=== PATIENT | female | born 1965 | race Caucasian/White ===

== ENCOUNTER 2017-05-31 12:40 | Observation (INO) | payer SELFPAY ==
[2017-05-31 13:28] LABS: BASOPHILS # (AUTO) 0.1 X10^3/uL (0.0-0.1); BASOPHILS % (AUTO) 0.6 % (0.2-1.0); EOSINOPHILS # (AUTO) 0.3 x10^3/uL (0.0-0.2); EOSINOPHILS % (AUTO) 4.1 % (0.9-2.9); HEMATOCRIT 39.8 % (36.0-47.0); HEMOGLOBIN 13.8 g/dL (12.0-16.0); LYMPHOCYTES % (AUTO) 24.3 % (21.0-51.0); MEAN CORPUSCULAR HEMOGLOBIN 33.1 pg (27.0-34.0); MEAN CORPUSCULAR HGB CONC 34.8 g/dL (33.0-35.0); MEAN CORPUSCULAR VOLUME 95.2 fL (80.0-100.0); MEAN PLATELET VOLUME 8.5 fL (7.4-11.0); MONOCYTES # (AUTO) 0.3 x10^3/uL (0.3-0.8); MONOCYTES % (AUTO) 4.2 % (0.0-13.0); NEUTROPHILS # (AUTO) 5.4 x10^3/uL (2.2-4.8); NEUTROPHILS % (AUTO) 66.8 % (42.0-75.0); PLATELET COUNT 263 X10^3/uL (150.0-450.0); RED BLOOD COUNT 4.18 X10^6/uL (3.5-5.4); RED CELL DISTRIBUTION WIDTH 12.6 % (11.6-16.5)
[2017-05-31] MEDS: PEPCID 20 MG IV PREMIX* 20 MG/50 ML BAG IV SCH ×2 (13:32→20:40)
[2017-05-31 13:41] VITALS: BMI 23.0
[2017-05-31 13:47] LABS: ALANINE AMINOTRANSFERASE 18 Units/L (12-78); ALBUMIN 3.5 g/dL (3.4-5.0); ALKALINE PHOSPHATASE 50 Units/L (46-116); ASPARTATE AMINO TRANSFERASE 22 Units/L (15-37); BLOOD UREA NITROGEN 11 mg/dL (7-18); CARBON DIOXIDE 25.8 mmol/L (21-32); CHLORIDE 105 mmol/L (98-107); CREATININE 1.09 mg/dL (0.55-1.02); GLUCOSE 96 mg/dL (65-99); MAGNESIUM 2.2 mg/dL (1.7-2.9); SODIUM 140 mmol/L (136-145); TOTAL PROTEIN 7.2 g/dL (6.4-8.2); eGFR BLACK RACES > 60 (>60); eGFR NON BLACK RACES 56 (>60)
--- NOTE | 2017-05-31 13:59 | RAD ---
HISTORY: COPD. Cough. Study: Chest one view Comparison: None. Findings: The trachea is midline. The cardiac silhouette is unremarkable. The lungs are hyperinflated. The l ungs are clear without focal infiltrate or effusion. The bony thorax is unremarkable. IMPRESSION: 1. No acute cardiopulmonary disease. Reported By:
[2017-05-31] MEDS ORDERED: NS 1000 ML 1,000 ML IV SCH (14:00)
[2017-05-31] MEDS ORDERED: NICODERM PATCH 21 MG/24 HR TD ONE (14:03)
[2017-05-31] MEDS: NICODERM PATCH 21 MG/24 HR TD SCH (14:06)
[2017-05-31] MEDS ORDERED: MORPHINE SULFATE INJ 2 MG ONE (15:57)
[2017-05-31] MEDS: MORPHINE SULFATE INJ 2 MG IVP PRN ×2 (16:06→22:14)
[2017-05-31] MEDS ORDERED: NS 100 ML IV 100 ML IV ONE (16:10)
[2017-05-31 16:33] LABS: BILIRUBIN,URINE NEGATIVE (NEGATIVE); BLOOD/HEMOGLOBIN,URINE 1+ (NEGATIVE); GLUCOSE, URINE NEGATIVE (NEGATIVE); KETONES,URINE NEGATIVE (NEGATIVE); LEUKOCYTE ESTERASE ,URINE NEGATIVE (NEGATIVE); NITRITES,URINE NEGATIVE (NEGATIVE); PROTEIN,URINE NEGATIVE (NEGATIVE); UROBILINOGEN,URINE NORMAL (NORMAL)
[2017-05-31 16:44] LABS: APPEARANCE,URINE HAZY (CLEAR); BACTERIA,URINE 1+ /HPF (NEGATIVE); COLOR,URINE YELLOW (YELLOW); RBC,URINE 0-2 /HPF (NEGATIVE); SQUAMOUS EPITHELIAL CELL,UR RARE /HPF (NEGATIVE)
[2017-05-31 17:04] LABS: CRYPTOSPORIDIUM PARVUM ANTIGEN NEGATIVE (NEGATIVE); GIARDIA LAMBLIA ANTIGEN NEGATIVE (NEGATIVE)
[2017-05-31] MEDS ORDERED: LEVSIN/MAALOX/LIDOC VISC PO PRN (18:16)
[2017-05-31] MEDS ORDERED: AMBIEN PO PRN (18:16)
--- NOTE | 2017-05-31 18:21 | DR.H&P ---
H&P - History & Physical for Day of: H&P Date: 05/31/17 - Chief Complaint Chief Complaint: ABDOMINAL PAIN, N/V, "CANNOT EAT" 20LBS WEIGHT LOSS - Allergies Allergies/Adverse Reactions: Allergies Allergy/AdvReac Type Severity Reaction Status Date / Time No Known Drug Allergies Allergy Verified 05/31/17 13:05 - History of Present Illness History of Present Illness: 52 [address] ADM[address] FROM [address] BUCIO OFFICE WITH SEVERE UPPER ABDOMINAL PAIN WITH N/V. PT STATES PAIN HAS WORSENED OVER THE LAST MONTH AND SHE HAS LOST 20LBS, PT "VOMITs" EVEN WATER. PT HAS TAKEN OTC ACIDE REDUCERS AND OMEPRAZOLE. PLAN TO ADMIT FOR CT ABD/PELVIS LABS CBC CMP LFT'S AMYLASE LIPASE, UA. WILL START IV HYDRATION AND PPI THERAPY. WILL RESUME HOME MEDS FOR HTN, REPEAT AM LABS - Past Medical History Past Medical History: Arthritis, COPD, GERD, Hypertension - Past Surgical History Surgical History: Hysterectomy - Family History Family Medical History: Cancer, Heart Failure, Hypertension - Social History Does patient currently use any type of tobacco product: Yes Have you used tobacco products in the last 12 months: Yes Type of Tobacco Use: Cigarettes How many years tobacco product used: 36 Does any household member use tobacco: Yes Alcohol Use: None Drug Use: None - Medications Home Medications: Acetaminophen with Codeine [Tylenol w/Codeine #4 (300 mg/60 mg)] 1 tab PO Q8H PRN 05/31/17 [History Confirmed 05/31/17] Clonazepam [Klonopin Tab 0.5 mg] 1 tab PO DAILY PRN 05/31/17 [History Confirmed 05/31/17] Estrogen,Jessy/Me-Testosterone [Estrogen-Methyltestos F.s. Tab] 1 tab PO DAILY 05/31/17 [History Confirmed 05/31/17] Lisinopril [ZESTRIL *] 1 tab PO BID 05/31/17 [History Confirmed 05/31/17] Meloxicam [MOBIC 15 MG *] 1 tab PO DAILY 05/31/17 [History Confirmed 05/31/17] - Review of Systems Constitutional: Weakness Eyes: No Symptoms Reported ENT: No Symptoms Reported Cardiovascular: No Symptoms Reported Gastrointestinal: Nausea, Vomiting, Abdominal Pain Genitourinary: No Symptoms Reported Musculoskeletal: Back Pain Skin: No Symptoms Reported Neurological: No Symptoms Reported - Physical Exam Vital Signs: Temperature 98 F Pulse Rate [Right Brachial] 60 Respiratory Rate 19 Blood Pressure [Right Arm] 135/71 O2 Sat by Pulse Oximetry 99 Oriented: Normal Eyes: Normal Ear: Normal Nose: Normal Throat: Normal Respiratory: RLL Exp. Wheeze Cardiovascular: Normal : Normal Auscultation: Bowel Sounds: Normal Tenderness: RUQ, Epigastric Skin: Decreased Turgur Musculoskeletal: Back:Lumbar Psychiatric: Anxiety Speech Pattern: Clear, Appropriate - Assessment/Plan (1) Abdominal pain Qualifiers: Abdominal location: A Status: Acute Plan: ADMIT CT ABD PELVIS, IV HYDRATION. PAIN AND NAUSEA CONTROL, PPI THERAPY. ADMISSION LABS, CBC CMP UA AMYLASE LIPASE. CXR ON ADMISSION (2) Weight loss Status: Acute (3) N&V (nausea and vomiting) Qualifiers: Vomiting type: V Vomiting Intractability: V Status: Acute (4) HTN (hypertension) Qualifiers: Hypertension type: H Status: Acute
[2017-05-31] MEDS: CIPRO IV 400 MG PREMIX* 400 MG/200 ML IV.SOLN. IV SCH (20:40)
[2017-06-01 05:42] LABS: BASOPHILS % (AUTO) 0.2 % (0.2-1.0); EOSINOPHILS # (AUTO) 0.2 x10^3/uL (0.0-0.2); EOSINOPHILS % (AUTO) 3.1 % (0.9-2.9); HEMATOCRIT 34.7 % (36.0-47.0); HEMOGLOBIN 12.1 g/dL (12.0-16.0); LYMPHOCYTES % (AUTO) 27.7 % (21.0-51.0); MEAN CORPUSCULAR HEMOGLOBIN 33.1 pg (27.0-34.0); MEAN CORPUSCULAR HGB CONC 34.8 g/dL (33.0-35.0); MEAN CORPUSCULAR VOLUME 95.4 fL (80.0-100.0); MEAN PLATELET VOLUME 8.6 fL (7.4-11.0); MONOCYTES # (AUTO) 0.4 x10^3/uL (0.3-0.8); NEUTROPHILS # (AUTO) 4.6 x10^3/uL (2.2-4.8); PLATELET COUNT 235 X10^3/uL (150.0-450.0); RED BLOOD COUNT 3.64 X10^6/uL (3.5-5.4); RED CELL DISTRIBUTION WIDTH 12.4 % (11.6-16.5); WHITE BLOOD COUNT 7.2 X10^3/uL (3.6-10.0)
[2017-06-01 06:00] LABS: ALANINE AMINOTRANSFERASE 29 Units/L (12-78); ALBUMIN 2.9 g/dL (3.4-5.0); ALKALINE PHOSPHATASE 45 Units/L (46-116); AMYLASE 34 Units/L (25-115); ASPARTATE AMINO TRANSFERASE 40 Units/L (15-37); BLOOD UREA NITROGEN 8 mg/dL (7-18); CALCIUM 7.4 mg/dL (8.5-10.1); CARBON DIOXIDE 25.8 mmol/L (21-32); CHLORIDE 108 mmol/L (98-107); COR CA(FOR HYPOALB) 8.3 mg/dL (8.5-10.1); CREATININE 0.98 mg/dL (0.55-1.02); GLUCOSE 88 mg/dL (65-99); LIPASE 94 Units/L (73-393); SODIUM 142 mmol/L (136-145); TOTAL PROTEIN 5.9 g/dL (6.4-8.2); eGFR BLACK RACES > 60 (>60); eGFR NON BLACK RACES > 60 (>60)
[2017-06-01] MEDS: CIPRO IV 400 MG PREMIX* 400 MG/200 ML IV.SOLN. IV SCH (08:38)
[2017-06-01] MEDS: NICODERM PATCH 21 MG/24 HR TD SCH (08:38)
[2017-06-01] MEDS: PEPCID 20 MG IV PREMIX* 20 MG/50 ML BAG IV SCH (08:39)
[2017-06-01 12:14] VITALS: BP 134/84
--- NOTE | 2017-06-01 13:13 | CT ---
HISTORY: 52-year-old female with nausea, vomiting and abdominal pain. Study: CT abdomen and pelvis with contrast Comparison: None Technique: Multiple axial images of the abdomen and pelvis were obtained from the lung bases to the pubic symph ysis after the administration of IV contrast. Dose reduction techniques including Automated Exposur e Control (AEC) and adjustment of mA and kV were utilized. Findings: The visualized lung bases appear clear. There are mild degenerative changes of the lower lumbar spin e with posterior fusion hardware noted at L5-S1. A small probable bone island is present within the right femoral head. There is a lucent focus with thin peripheral sclerotic rim within the posterior right ilium, which appears posttraumatic or postsurgical in etiology. No aggressive osseous lesion i s otherwise identified. There is mild intra as well as extrahepatic biliary dilatation, likely reflecting post cholecystecto my state. The liver, spleen, pancreas and adrenals are unremarkable. There is mild pelviectasis of t he right greater than left kidneys. A tiny probable cyst is also noted within the upper pole of the right kidney. Both kidneys otherwise enhance symmetrically without evidence of obstruction. There is contrast material throughout the colon and distal small bowel. The GI tract , including the appendix otherwise appears normal without evidence of focal bowel wall thickening or obstruction. T he IVC and abdominal aorta are unremarkable. The urinary bladder is normal. The uterus is present. N o adnexal masses or cysts are seen. There is no free fluid, free air or lymphadenopathy. IMPRESSION: Mild intra and extrahepatic biliary dilatation is likely related to prior cholecystectomy. If clinic ally indicated , correlation with biliary enzymes is recommended to exclude biliary obstruction. Otherwise, no acute abnormality identified to account for patient's symptoms. Mild bilateral renal pelviectasis and additional ancillary findings as described. Reported By:
--- NOTE | 2017-06-01 15:19 | PCM.DCPLAN ---
Discharge Summary - Admission Diagnoses (1) Abdominal pain Status: Acute (2) Weight loss Status: Acute (3) N&V (nausea and vomiting) Status: Acute (4) HTN (hypertension) Status: Acute - Discharge Medications Discharge Medications: Acetaminophen with Codeine [Tylenol w/Codeine #4 (300 mg/60 mg)] 1 tab PO Q8H PRN 05/31/17 [History] Clonazepam [Klonopin Tab 0.5 mg] 1 tab PO DAILY PRN 05/31/17 [History] Estrogen,Jessy/Me-Testosterone [Estrogen-Methyltestos F.s. Tab] 1 tab PO DAILY 05/31/17 [History] Lisinopril [ZESTRIL *] 1 tab PO BID 05/31/17 [History] Meloxicam [MOBIC 15 MG *] 1 tab PO DAILY 05/31/17 [History] Dicyclomine HCl [Bentyl Cap 10 mg] 10 mg PO TID #45 cap 06/01/17 [Rx] Omeprazole 40 mg PO DAILY #30 capsule. 06/01/17 [Rx] - Hospital Course Vital Signs: Temperature 97.9 F Pulse Rate [Right Brachial] 58 Respiratory Rate 18 Blood Pressure [Right Arm] 134/84 O2 Sat by Pulse Oximetry 100 Latest Lab Results: Laboratory Last Values WBC 7.2 X10^3/uL (3.6-10.0) 06/01/17 04:55 RBC 3.64 X10^6/uL (3.5-5.4) 06/01/17 04:55 Hgb 12.1 g/dL (12.0-16.0) 06/01/17 04:55 Hct 34.7 % (36.0-47.0) L 06/01/17 04:55 MCV 95.4 fL (80.0-100.0) 06/01/17 04:55 MCH 33.1 pg (27.0-34.0) 06/01/17 04:55 MCHC 34.8 g/dL (33.0-35.0) 06/01/17 04:55 RDW 12.4 % (11.6-16.5) 06/01/17 04:55 Plt Count 235 X10^3/uL (150.0-450.0) 06/01/17 04:55 MPV 8.6 fL (7.4-11.0) 06/01/17 04:55 Neut % 64.0 % (42.0-75.0) 06/01/17 04:55 Lymph % 27.7 % (21.0-51.0) 06/01/17 04:55 Vance % 5.0 % (0.0-13.0) 06/01/17 04:55 Eos % 3.1 % (0.9-2.9) H 06/01/17 04:55 Baso % 0.2 % (0.2-1.0) 06/01/17 04:55 Neut # 4.6 x10^3/uL (2.2-4.8) 06/01/17 04:55 Lymph # 2.0 X10^3/uL (1.3-2.9) 06/01/17 04:55 Vance # 0.4 x10^3/uL (0.3-0.8) 06/01/17 04:55 Eos # 0.2 x10^3/uL (0.0-0.2) 06/01/17 04:55 Baso # 0.0 X10^3/uL (0.0-0.1) 06/01/17 04:55 Absolute Nucleated RBC 0.0 /100WBC 06/01/17 04:55 Sodium 142 mmol/L (136-145) 06/01/17 04:55 Corrected Sodium TNP 06/01/17 04:55 Potassium 4.1 mmol/L (3.5-5.1) 06/01/17 04:55 Chloride 108 mmol/L (98-107) H 06/01/17 04:55 Carbon Dioxide 25.8 mmol/L (21-32) 06/01/17 04:55 BUN 8 mg/dL (7-18) 06/01/17 04:55 Creatinine 0.98 mg/dL (0.55-1.02) 06/01/17 04:55 Est GFR (MDRD) Af Amer > 60 (>60) 06/01/17 04:55 Est GFR (MDRD) Non-Af > 60 (>60) 06/01/17 04:55 Glucose 88 mg/dL (65-99) 06/01/17 04:55 Calcium 7.4 mg/dL (8.5-10.1) L 06/01/17 04:55 Corrected Calcium 8.3 mg/dL (8.5-10.1) L 06/01/17 04:55 Magnesium 2.2 mg/dL (1.7-2.9) 05/31/17 13:15 Total Bilirubin 0.40 mg/dL (0.2-1.0) 06/01/17 04:55 AST 40 Units/L (15-37) H 06/01/17 04:55 ALT 29 Units/L (12-78) 06/01/17 04:55 Alkaline Phosphatase 45 Units/L (46-116) L 06/01/17 04:55 Total Protein 5.9 g/dL (6.4-8.2) L 06/01/17 04:55 Albumin 2.9 g/dL (3.4-5.0) L 06/01/17 04:55 Globulin 3.0 g/dL (2.5-4.5) 06/01/17 04:55 Albumin/Globulin Ratio 1.0 Ratio (1.1-2.1) L 06/01/17 04:55 Amylase 34 Units/L (25-115) 06/01/17 04:55 Lipase 94 Units/L (73-393) 06/01/17 04:55 Specimen Type Clean catch urine 05/31/17 16:18 Urine Color Yellow (YELLOW) 05/31/17 16:18 Urine Appearance Hazy (CLEAR) 05/31/17 16:18 Urine pH 5.0 (5.0 - 8.0) 05/31/17 16:18 Ur Specific [place] 1.005 (1.000-1.030) 05/31/17 16:18 Urine Protein Negative (NEGATIVE) 05/31/17 16:18 Urine Glucose (UA) Negative (NEGATIVE) 05/31/17 16:18 Urine Ketones Negative (NEGATIVE) 05/31/17 16:18 Urine Occult Blood 1+ (NEGATIVE) 05/31/17 16:18 Urine Nitrite Negative (NEGATIVE) 05/31/17 16:18 Urine Bilirubin Negative (NEGATIVE) 05/31/17 16:18 Urine Urobilinogen Normal (NORMAL) 05/31/17 16:18 Ur Leukocyte Esterase Negative (NEGATIVE) 05/31/17 16:18 Urine RBC 0-2 /HPF (NEGATIVE) 05/31/17 16:18 Urine WBC 0-2 /HPF (NEGATIVE) 05/31/17 16:18 Ur Squamous Epith Cells Rare /HPF (NEGATIVE) 05/31/17 16:18 Urine Bacteria 1+ /HPF (NEGATIVE) 05/31/17 16:18 Ur Culture Indicated? No/not indicated 05/31/17 16:18 Stool Description 100g, lt,y, loose 05/31/17 16:18 Stl Occult Blood (IFOB) Negative (NEGATIVE) 05/31/17 16:18 Stool for White Cells No wbc's seen (None) 05/31/17 16:18 Stl C. diff Tox B Gene Negative (NEGATIVE) 05/31/17 16:18 Stl C. diff [id number] Negative (NEGATIVE) 05/31/17 16:18 Cryptosporid parvum Ag Negative (NEGATIVE) 05/31/17 16:18 E. histolytica Antigen Negative (NEGATIVE) 05/31/17 16:18 Giardia lamblia Ag Negative (NEGATIVE) 05/31/17 16:18 H. pylori IgG Antibody Negative (NEGATIVE) 05/31/17 13:15 - Discharge Plan Disposition: 01 HOME, SELF-CARE Condition: Stable Prescriptions: Dicyclomine HCl [Bentyl Cap 10 mg] 10 mg PO TID #45 cap Omeprazole 40 mg PO DAILY #30 capsule.dr - Follow ups/Referrals Follow ups/Referrals: JAMEEL SANTOS [Primary Care Provider] - 06/11/17 1:45 pm - Instructions Instructions: Nausea, Adult, Abdominal Pain, Adult, [id number], Hypertension , [id number], Smoking Cessation, Tips for Success, Omeprazole tablets (OTC) Additional Instructions: hold mobic x 1 month will need outpt EGD resume home meds Forms: Patient Portal
[2017-06-01] MEDS ORDERED: CHECK PATCH XX SCH (21:00)
== END 2017-06-01 14:45 | disposition home or self-care (01) ==
LOC: ICU 12:40
PROVIDERS: ADMIT Internal Medicine; ATTEND Internal Medicine
DX: R10.84 Generalized abdominal pain (principal); R63.4 Abnormal weight loss; R11.2 Nausea with vomiting, unspecified; M13.89 Other specified arthritis, multiple sites; J44.9 Chronic obstructive pulmonary disease, unspecified; K21.9 Gastro-esophageal reflux disease without esophagitis; I10 Essential (primary) hypertension
CPT/HCPCS: 36415; 71010; 74177; 80053; 81001; 82150; 82270; 82705; 83690; 83735; 85025; 86677; 87045; 87205; 87328; 87329; 87336; 87427; 87493; 87899; A4222; S0028; G0378; J0744; J2270

== ENCOUNTER 2017-10-24 11:34 | Observation (INO) | payer SELFPAY ==
[2017-10-24] MEDS: NS 1000 ML 1,000 ML IV SCH (14:17)
[2017-10-24] MEDS: DILAUDID INJ IVP PRN ×2 (14:17→20:50)
[2017-10-24 14:39] VITALS: BMI 21.9
[2017-10-24 14:49] LABS: BASOPHILS % (AUTO) 0.1 % (0.2-1.0); EOSINOPHILS % (AUTO) 0.2 % (0.9-2.9); HEMOGLOBIN 13.7 g/dL (12.0-16.0); LYMPHOCYTES # (AUTO) 1.3 X10^3/uL (1.3-2.9); LYMPHOCYTES % (AUTO) 7.5 % (21.0-51.0); MEAN CORPUSCULAR HEMOGLOBIN 32.8 pg (27.0-34.0); MEAN CORPUSCULAR HGB CONC 34.2 g/dL (33.0-35.0); MEAN CORPUSCULAR VOLUME 95.9 fL (80.0-100.0); MEAN PLATELET VOLUME 9.1 fL (7.4-11.0); MONOCYTES # (AUTO) 0.5 x10^3/uL (0.3-0.8); MONOCYTES % (AUTO) 2.8 % (0.0-13.0); NEUTROPHILS # (AUTO) 15.1 x10^3/uL (2.2-4.8); NEUTROPHILS % (AUTO) 89.4 % (42.0-75.0); PLATELET COUNT 196 X10^3/uL (150.0-450.0); RED BLOOD COUNT 4.17 X10^6/uL (3.5-5.4); RED CELL DISTRIBUTION WIDTH 13.3 % (11.6-16.5); WHITE BLOOD COUNT 16.9 X10^3/uL (3.6-10.0)
[2017-10-24 14:50] LABS: BILIRUBIN,URINE 1+ (NEGATIVE); BLOOD/HEMOGLOBIN,URINE 4+ (NEGATIVE); GLUCOSE, URINE NEGATIVE (NEGATIVE); KETONES,URINE NEGATIVE (NEGATIVE); LEUKOCYTE ESTERASE ,URINE 3+ (NEGATIVE); NITRITES,URINE POSITIVE (NEGATIVE); PROTEIN,URINE 3+ (NEGATIVE); UROBILINOGEN,URINE 2+ (NORMAL)
[2017-10-24 14:59] LABS: ALANINE AMINOTRANSFERASE 24 Units/L (12-78); ALBUMIN 3.7 g/dL (3.4-5.0); ALKALINE PHOSPHATASE 63 Units/L (46-116); AMYLASE 28 Units/L (25-115); ASPARTATE AMINO TRANSFERASE 26 Units/L (15-37); BLOOD UREA NITROGEN 19 mg/dL (7-18); CALCIUM 8.5 mg/dL (8.5-10.1); CARBON DIOXIDE 25.1 mmol/L (21-32); CHLORIDE 99 mmol/L (98-107); CREATININE 1.35 mg/dL (0.55-1.02); LIPASE 96 Units/L (73-393); SODIUM 136 mmol/L (136-145); TOTAL PROTEIN 7.7 g/dL (6.4-8.2); eGFR BLACK RACES 53 (>60); eGFR NON BLACK RACES 44 (>60)
[2017-10-24 14:59] LABS: COLOR,URINE YELLOW (YELLOW)
[2017-10-24 15:00] LABS: APPEARANCE,URINE SLIGHTLY HAZY (CLEAR); BACTERIA,URINE 3+ /HPF (NEGATIVE); SQUAMOUS EPITHELIAL CELL,UR RARE /HPF (NEGATIVE)
[2017-10-24] MEDS ORDERED: ZOSYN VIAL 4.5 GM IV SCH (15:00)
[2017-10-24] MEDS ORDERED: NS 100 ML IV + SPIKE MINIBAG* 100 ML IV ONE (15:00)
[2017-10-24 15:03] LABS: LACTIC ACID 2.2 mmol/L (0.4-2.0)
--- NOTE | 2017-10-24 16:04 | US ---
RIGHT UPPER QUADRANT ULTRASOUND HISTORY: Severe right upper quadrant pain. Status post cholecystectomy Comparison: Abdomen CT 05/31/2017 Technique: Multiple ellington scale and color flow Doppler images of the right upper quadrant were obtaine d. Findings: Overall study is limited by overlying bowel gas. The liver is normal in echotexture and size. No foc al mass. No intrahepatic bile duct dilatation. Gallbladder absent. Hyperechoic shadowing structures i n the region of gallbladder fossa correlate with cholecystectomy clips and air filled distal stomach on somewhat recent abdominal CT. Reported as positive sonographic Marin sign. The common bile duct m easures 5 mm. The right kidney measures 11.2 cm. No hydronephrosis or renal masses. The pancreas is obscured by o verlying bowel gas. IMPRESSION: 1. Negative right upper quadrant ultrasound. Reported positive sonographic Marin sign. Reported By:
[2017-10-24] MEDS ORDERED: TYLENOL SUPP 650 MG PR PRN (16:49)
[2017-10-24] MEDS ORDERED: POTASSIUM CHLORIDE LIQ 20 MEQ UDC PO PRN (17:17)
[2017-10-24] MEDS ORDERED: K-LYTE EFFERVESCENT PO PRN (17:17)
[2017-10-24] MEDS ORDERED: POTASSIUM CHL 60 MEQ/NS 0.45% 500 ML IV PRN (17:17)
[2017-10-24] MEDS ORDERED: K-RIDER 10 MEQ/NS 100 ML 10 MEQ/100 ML BAG IV PRN (17:17)
[2017-10-24] MEDS ORDERED: POTASSIUM CHL 40 MEQ/NS 0.45% 500 ML IV PRN (17:17)
[2017-10-24] MEDS ORDERED: MAGNESIUM SULFATE 1 GM/100 mL PREMIX 1 GM/100 ML BAG IV PRN (17:17)
[2017-10-24] MEDS ORDERED: MAG-OX TAB PO PRN (17:17)
--- NOTE | 2017-10-24 18:42 | DR.H&P ---
H&P - History & Physical for Day of: H&P Date: 10/24/17 - Chief Complaint Chief Complaint: RIGHT SIDE ABOMINAL PAIN, FEVER AND VOMITING - Allergies Allergies/Adverse Reactions: Allergies Allergy/AdvReac Type Severity Reaction Status Date / Time No Known Drug Allergies Allergy Verified 05/31/17 13:05 - History of Present Illness History of Present Illness: Patient is a 52-year-old white female who was a direct admit from Dr. Verma's office after presenting with complaints of intractable right-sided abdominal pain, fever and vomiting. Patient stated pain started last p.m. got worse during the night. Patient denies any diarrhea. Patient states she still has her gallbladder no history of kidney stones and had her appendix taken out when she had a hysterectomy several years ago. Patient has a history of high blood pressure and osteoarthritis. Plan to admit patient for further evaluation of intractable abdominal pain, obtain admission labs pain and nausea control - Past Medical History Past Medical History: Arthritis, COPD, GERD, Hypertension - Past Surgical History Surgical History: Appendectomy, Cholecystectomy, Hysterectomy, Other - Family History Family Medical History: [place], Coronary Artery Disease - Social History Does patient currently use any type of tobacco product: Yes Have you used tobacco products in the last 12 months: Yes Type of Tobacco Use: Cigarettes How many years tobacco product used: 35 Does any household member use tobacco: No Alcohol Use: None Drug Use: None - Review of Systems Constitutional: Fever, Chills, Weakness Eyes: No Symptoms Reported ENT: No Symptoms Reported Cardiovascular: No Symptoms Reported Gastrointestinal: Nausea, Vomiting, Abdominal Pain Genitourinary: No Symptoms Reported Musculoskeletal: Back Pain Skin: No Symptoms Reported Neurological: No Symptoms Reported - Physical Exam Vital Signs: Temperature 100.2 F Pulse Rate [Right Radial] 102 Respiratory Rate 20 Blood Pressure [Right Arm] 110/57 Blood Pressure 134/84 O2 Sat by Pulse Oximetry 97 Oriented: Normal Eyes: Normal Ear: Normal Nose: Normal Throat: Normal Respiratory: RLL Exp. Wheeze, LLL Exp. Wheeze Cardiovascular: Normal : Normal Auscultation: Bowel Sounds: Normal Tenderness: RUQ, RLQ Skin: Normal Musculoskeletal: Right, Left, Shoulder, Knee, Back:Lumbar Psychiatric: Anxiety Speech Pattern: Clear, Appropriate - Assessment/Plan (1) Abdominal pain Qualifiers: Abdominal location: right upper quadrant Qualified Code(s): R10.11 - Right upper quadrant pain Status: Acute Plan: admit, admission labs, CBC CMP lactic acid, gallbladder ultrasound, CT of the abdomen and pelvis, pain and nausea control, gentle IV hydration, urinalysis , urine culture, fever control,, nothing by mouth. Blood pressure monitoring, resume home meds after diagnostic testing requiring nothing by mouth status (2) N&V (nausea and vomiting) Status: Acute (3) HTN (hypertension) Status: Acute (4) RADHIKA (generalized anxiety disorder) Status: Acute
[2017-10-24] MEDS: ZOFRAN INJ 4 MG VIAL IVP PRN (18:47)
[2017-10-24] MEDS: MAXIPIME 2 GM in NS 100 ML IV + SPIKE MINIBAG* 100 ML IV SCH (20:02)
[2017-10-24] MEDS: CIPRO IV 400 MG PREMIX* 400 MG/200 ML IV.SOLN. IV SCH (20:03)
--- NOTE | 2017-10-24 22:02 | CT ---
HISTORY: Right upper quadrant pain. Study: CT abdomen and pelvis with contrast Comparison: Right upper quadrant ultrasound dated same day and CT abdomen/pelvis dated May 31, 2017. Technique: Multiple axial images of the abdomen and pelvis were obtained from the lung bases to the pubic symphy sis after the administration of IV contrast. Dose reduction techniques including Automated Exposure Control (AEC) and adjustment of mA and kV were utilized. Findings: The visualized portions of the lung bases are unremarkable. There is enlargement and asymmetric enha ncement of the right kidney with marked perinephric stranding and suggestion of enhancement of the ur othelium of the right renal pelvis. No significant hydronephrosis or obstructing stone. The liver, sp tom, pancreas, left kidney, and adrenal glands are unremarkable in their CT appearance. The gallblad judy is surgically absent. No significant mesenteric lymphadenopathy or stranding can be observed. N o free fluid or free air is seen within the abdomen. The large and small bowel are unremarkable. The uterus and ovaries appear surgically absent. The urinary bladder is grossly unremarkable. Patient is status post posterior fusion at L5-S1. The hardware appears unchanged and intact. No acute osseous a bnormality. IMPRESSION: 1. Constellation of findings likely representing right pyelonephritis as above. Recommend clinical/la boratory correlation. 2. Other chronic findings as above. Reported By:
[2017-10-25] MEDS: DILAUDID INJ IVP PRN ×3 (03:29→18:17)
[2017-10-25] MEDS: NS 1000 ML 1,000 ML IV SCH (04:56)
[2017-10-25 06:30] LABS: BASOPHILS % (AUTO) 0.2 % (0.2-1.0); EOSINOPHILS % (AUTO) 0.1 % (0.9-2.9); LYMPHOCYTES # (AUTO) 0.4 X10^3/uL (1.3-2.9); LYMPHOCYTES % (AUTO) 3.5 % (21.0-51.0); MEAN CORPUSCULAR HEMOGLOBIN 32.9 pg (27.0-34.0); MEAN CORPUSCULAR HGB CONC 34.3 g/dL (33.0-35.0); MEAN PLATELET VOLUME 9.6 fL (7.4-11.0); MONOCYTES # (AUTO) 0.5 x10^3/uL (0.3-0.8); NEUTROPHILS # (AUTO) 10.7 x10^3/uL (2.2-4.8); NEUTROPHILS % (AUTO) 92.2 % (42.0-75.0); PLATELET COUNT 125 X10^3/uL (150.0-450.0); RED BLOOD COUNT 3.33 X10^6/uL (3.5-5.4); WHITE BLOOD COUNT 11.6 X10^3/uL (3.6-10.0)
[2017-10-25 06:42] LABS: LACTIC ACID 1.2 mmol/L (0.4-2.0)
[2017-10-25 06:45] LABS: ALBUMIN 2.5 g/dL (3.4-5.0); CALCIUM 7.2 mg/dL (8.5-10.1); CARBON DIOXIDE 23.8 mmol/L (21-32); COR CA(FOR HYPOALB) 8.4 mg/dL (8.5-10.1); CREATININE 1.41 mg/dL (0.55-1.02); MAGNESIUM 2.1 mg/dL (1.7-2.9); TOTAL PROTEIN 5.9 g/dL (6.4-8.2)
[2017-10-25 07:12] LABS: BAND NEUTROPHILS % 2 % (0-10)
[2017-10-25 07:13] LABS: PLATELET MORPHOLOGY COMMENT NORMAL (NORMAL)
[2017-10-25] MEDS: CIPRO IV 400 MG PREMIX* 400 MG/200 ML IV.SOLN. IV SCH ×2 (09:55→21:23)
[2017-10-25] MEDS: MAXIPIME 2 GM in NS 100 ML IV + SPIKE MINIBAG* 100 ML IV SCH ×2 (09:55→21:27)
[2017-10-25] MEDS ORDERED: FLUVIRIN IM ONE (09:58)
--- NOTE | 2017-10-25 12:04 | MRI ---
MRCP Indication: Right upper quadrant pain, fever Comparison: Gallbladder ultrasound and CT abdomen and pelvis from the same day Technique: Multiplanar multi sequence MR images of the abdomen were obtained per protocol. Findings: The liver is normal in configuration, without evidence for fatty or iron infiltration. Prev ious cholecystectomy is noted. There is no intrahepatic or extrahepatic biliary or pancreatic ductal dilation. No intraductal filling defect is identified. There is fat stranding and mild asymmetric enlargement of the right kidney, with mild pelviectasis. T hese findings are better appreciated on the CT abdomen and pelvis from the same day, but suggestive f or pyelonephritis. The left kidney, spleen, stomach, pancreas, adrenals, and visualized lower GI trac t are unremarkable. Impression: 1. Unremarkable MRCP post cholecystectomy. 2. Suggestion of right pyelonephritis. Refer to the CT abdomen and pelvis from the same day. Reported By:
[2017-10-25] MEDS: ESTRATEST TAB 1.25/2.5 MG PO SCH (15:00)
[2017-10-25] MEDS: ZESTRIL TAB 10 MG PO SCH ×2 (16:47→21:22)
[2017-10-25] MEDS: NICOTINE PATCH TD SCH (18:17)
[2017-10-25] MEDS: ZOFRAN INJ 4 MG VIAL IVP PRN (18:18)
[2017-10-26 06:09] LABS: BASOPHILS % (AUTO) 0.2 % (0.2-1.0); EOSINOPHILS % (AUTO) 0.6 % (0.9-2.9); HEMATOCRIT 29.4 % (36.0-47.0); HEMOGLOBIN 10.3 g/dL (12.0-16.0); LYMPHOCYTES # (AUTO) 0.3 X10^3/uL (1.3-2.9); LYMPHOCYTES % (AUTO) 6.4 % (21.0-51.0); MEAN CORPUSCULAR HEMOGLOBIN 33.1 pg (27.0-34.0); MEAN CORPUSCULAR HGB CONC 35.1 g/dL (33.0-35.0); MEAN CORPUSCULAR VOLUME 94.4 fL (80.0-100.0); MEAN PLATELET VOLUME 9.8 fL (7.4-11.0); MONOCYTES # (AUTO) 0.3 x10^3/uL (0.3-0.8); MONOCYTES % (AUTO) 4.9 % (0.0-13.0); NEUTROPHILS # (AUTO) 4.7 x10^3/uL (2.2-4.8); NEUTROPHILS % (AUTO) 87.9 % (42.0-75.0); PLATELET COUNT 105 X10^3/uL (150.0-450.0); RED BLOOD COUNT 3.12 X10^6/uL (3.5-5.4); WHITE BLOOD COUNT 5.4 X10^3/uL (3.6-10.0)
[2017-10-26 06:53] LABS: ALANINE AMINOTRANSFERASE 21 Units/L (12-78); ALBUMIN 2.2 g/dL (3.4-5.0); ALKALINE PHOSPHATASE 59 Units/L (46-116); ASPARTATE AMINO TRANSFERASE 30 Units/L (15-37); BLOOD UREA NITROGEN 13 mg/dL (7-18); CALCIUM 7.2 mg/dL (8.5-10.1); CARBON DIOXIDE 22.1 mmol/L (21-32); CHLORIDE 102 mmol/L (98-107); COR CA(FOR HYPOALB) 8.6 mg/dL (8.5-10.1); CREATININE 1.07 mg/dL (0.55-1.02); SODIUM 134 mmol/L (136-145); TOTAL PROTEIN 5.6 g/dL (6.4-8.2); eGFR BLACK RACES > 60 (>60); eGFR NON BLACK RACES 57 (>60)
[2017-10-26 10:06] VITALS: BP 131/72
[2017-10-26] MEDS: ZESTRIL TAB 10 MG PO SCH (10:11)
[2017-10-26] MEDS: CIPRO IV 400 MG PREMIX* 400 MG/200 ML IV.SOLN. IV SCH (10:11)
[2017-10-26] MEDS: NICOTINE PATCH TD SCH (10:11)
[2017-10-26] MEDS: MAXIPIME 2 GM in NS 100 ML IV + SPIKE MINIBAG* 100 ML IV SCH (10:12)
[2017-10-26] MEDS: ESTRATEST TAB 1.25/2.5 MG PO SCH (10:12)
[2017-10-26] MEDS: NS 1000 ML 1,000 ML IV SCH (10:12)
== END 2017-10-26 10:00 | disposition home or self-care (01) ==
LOC: MED/SURG 11:34 → UNDOADMOB 11:34 → MED/SURG 12:20
PROVIDERS: ADMIT Internal Medicine; ATTEND Internal Medicine
PROC: 3E0234Z Introduction of Serum, Toxoid and Vaccine into Muscle, Percutaneous Approach (ICD-10-PCS; principal; 2017-10-25)
DX: R10.84 Generalized abdominal pain (principal); I10 Essential (primary) hypertension; M13.89 Other specified arthritis, multiple sites; J44.9 Chronic obstructive pulmonary disease, unspecified; K21.9 Gastro-esophageal reflux disease without esophagitis; R11.2 Nausea with vomiting, unspecified; F41.8 Other specified anxiety disorders; B96.29 Other Escherichia coli [E. coli] as the cause of diseases classified elsewhere; D72.828 Other elevated white blood cell count; F11.90 Opioid use, unspecified, uncomplicated; F12.90 Cannabis use, unspecified, uncomplicated; Z23 Encounter for immunization
CPT/HCPCS: 36415; 74177; 74181; 76705; 80053; 80307; 81001; 82150; 83605; 83690; 83735; 85025; 87040; 87077; 87086; 87088; 87186; 90686; A4222; G0378; G0434; J0692; J0744; J2405; J2543